=== PATIENT | male | born 1990 | race Caucasian/White ===

== ENCOUNTER 2016-08-30 20:55 | Emergency (ER) | payer BC, OTHER ==
[~2016-08-30] VITALS: Ht 188 cm; Wt 99.8 kg
[2016-08-30 21:03] VITALS: BP 149/87
[2016-08-30] MEDS ORDERED: DOXY100C2 PO (21:17)
[2016-08-30] MEDS ORDERED: traMADol 50 MG TABLET ONE (21:18)
--- NOTE | 2016-08-30 21:18 | PHYS DOC ---
Past Medical History Past Medical History: Kidney Stone, Seizure Additional Past Medical Histor: Autistic, ADHD, manic depressive Past Surgical History: Hip Replacement, Other Additional Past Surgical Histo: RIGHT WRIST SURGERIES; RIGHT KNEE Alcohol Use: Occasionally Drug Use: None Adult General Chief Complaint Chief Complaint: ABSCESS [facility] HPI Patient is a 25 year old male presents emergency department stating that he has an abscess on the right side of his head at the occipital part. He states that he's been having this area for the last 5 days with minimal drainage from the site. He states last night when he tried to roll on that side of his head that he had increased pain and discomfort. He states that he's been taken ibuprofen for the pain and discomfort with no relief. He states that he has had multiple abscesses in the past. He has multiple sores throughout his body that is apparent at this time. He states his last tetanus immunization was 2 years ago. Review of Systems Review of Systems Constitutional: Denies fever or chills [] Eyes: Denies change in visual acuity, redness, or eye pain [] HENT: Denies nasal congestion or sore throat [] Respiratory: Denies cough or shortness of breath [] Cardiovascular: No additional information not addressed in HPI [] GI: Denies abdominal pain, nausea, vomiting, bloody stools or diarrhea [] : Denies dysuria or hematuria [] Musculoskeletal: Denies back pain or joint pain [] Integument: Denies rash or skin lesions [] Neurologic: Denies headache, focal weakness or sensory changes [] Endocrine: Denies polyuria or polydipsia [] Current Medications Current Medications Current Medications Medications (Trade) Dose Ordered Sig/[facility] Start Time Stop Time Status Last Admin Dose Admin Tramadol HCl (Ultram) 50 mg 1X ONCE 08/30/16 21:30 08/30/16 21:31 UNV Allergies Allergies Allergies Coded Allergies Type Severity Reaction Last Updated Verified nickel Allergy Intermediate 08/20/15 Yes Physical Exam Physical Exam Constitutional: Well developed, well nourished, no acute distress, non-toxic appearance. [] HENT: Normocephalic, atraumatic, bilateral external ears normal, oropharynx moist, no oral exudates, nose normal. [] Eyes: PERRLA, EOMI, conjunctiva normal, no discharge. [] Neck: Normal range of motion, no tenderness, supple, no stridor. [] Cardiovascular:Heart rate regular rhythm, no murmur [] Lungs & Thorax: Bilateral breath sounds clear to auscultation [] Skin: Warm, dry, no erythema, no rash. Abscess noted to the occipital part of the right head approx size of a grape. Patient was noted to have a scab over the area. No drainage at this time. Area appears to be slightly tender although no redness noted. A shunt was noted to have multiple sores throughout the body in the upper back area. Back: No tenderness Extremities: No tenderness, no cyanosis, no clubbing, ROM intact, no edema. [] Neurologic: Alert and oriented X 3, normal motor function, normal sensory function, no focal deficits noted. [] Psychologic: Affect normal, judgement normal, mood normal. [] Current Patient Data Vital Signs Vital Signs Date Time Temp Pulse Resp B/P (MAP) Pulse Ox O2 Delivery O2 Flow Rate FiO2 08/30/16 21:03 98.2 115 20 97 Room Air 98.2 EKG EKG [] Radiology/Procedures Radiology/Procedures [] Course & Med Decision Making Course & Med Decision Making Pertinent Labs and Imaging studies reviewed. (See chart for details) Spoke with patient in regards to using ibuprofen 800 mg every 8 hours for pain and discomfort. Also spoke with him in regards to using warm moist packs to the area 4-5 times a day for 20 minutes at a time. Patient states that he wants symptoms stronger than ibuprofen. He states that he doesn't want any narcotics but he needs to have some concern and ibuprofen. Patient reiterated this to me 4 -5 different times that he wanted symptoms stronger but did not want a narcotic. Patient later stated that he needed to tramadol for the pain and discomfort. Spoke with patient regards to proper medication for use each. He states that had multiple abscesses in the past and this is what I need to take care of him. Patient will be discharged home in stable condition with doxycycline with recommendations to use of ibuprofen and warm moist packs. Patient was provided with signs and symptoms to return back to emergency department as been provided. Patient asked provider for Past. Patient was instructed that he would need to discuss this with the nursing staff. [] Dragon Disclaimer Dragon Disclaimer This electronic medical record was generated, in whole or in part, using a voice recognition dictation system. Departure Departure Impression: Primary Impression: Abscess Disposition: HOME, SELF-CARE Condition: STABLE Referrals: NO PCP (PCP) Patient Instructions: Abscess, [id number] Additional Instructions: Being treated for an abscess. Warm moist packs on 20 minutes off 20 minutes several times today for the next 2 -3 days. Ibuprofen 800 mg every 8 hours with food stop taking few develop an upset stomach. Doxycycline as prescribed. Follow-up to primary care physician next 3-5 days. Return back to emergency prior signs symptoms of become worse. Scripts Doxycycline Hyclate (DOXYCYCLINE HYCLATE) 100 Mg Capsule 1 CAP PO BID, #20 CAP Prov: LUIS PALMA APRN 08/30/16 LUIS PALMA APRN August 30, 2016 21:17
[2016-08-30] MEDS ORDERED: traMADol 50 MG TABLET PO ONE (21:30)
== END 2016-08-30 21:27 | disposition home or self-care (01) ==
LOC: ER 21:18
DX: L02.811 Cutaneous abscess of head [any part, except face] (principal); F90.9 Attention-deficit hyperactivity disorder, unspecified type; Z91.048 Other nonmedicinal substance allergy status
CPT/HCPCS: 99283

== ENCOUNTER 2016-09-26 23:32 | Emergency (ER) | payer BC, OTHER ==
[~2016-09-26] VITALS: Ht 177.8 cm; Wt 95.8 kg
[~2016-09-26 23:32] MED LIST: DOXY100C2 PO
--- NOTE | 2016-09-27 01:26 | PHYS DOC ---
Past Medical History Past Medical History: Kidney Stone, Seizure Additional Past Medical Histor: Autistic, ADHD, manic depressive Past Surgical History: Hip Replacement, Other Additional Past Surgical Histo: RIGHT WRIST SURGERIES; RIGHT KNEE Alcohol Use: Occasionally Drug Use: None Adult General Chief Complaint Chief Complaint: PSYCH EVALUATION HPI HPI Patient is a 26 year old male who presents with father for concern of visual hallucinations and anxiety. He has not slept well in the past 2 days. Father states he gets this way when he is not taking his psychiatric medications. Patient states he does not like taking them. Patient and father state that he just needs some medicine to calm down, and then will go home and take his medications. He has plans to follow up with outpatient psychiatry. He denies suicidality, homicidality, auditory hallucinations. He denies substance abuse. He denies headache, vision changes, chest pain, cough, dyspnea, fever or chills , nausea or vomiting, diarrhea. Review of Systems Review of Systems Constitutional: Denies fever or chills [] Eyes: Denies change in visual acuity, redness, or eye pain [] HENT: Denies nasal congestion or sore throat [] Respiratory: Denies cough or shortness of breath [] Cardiovascular: No additional information not addressed in HPI [] GI: Denies abdominal pain, nausea, vomiting, bloody stools or diarrhea [] : Denies dysuria or hematuria [] Musculoskeletal: Denies back pain or joint pain [] Integument: Denies rash or skin lesions [] Neurologic: Denies headache, focal weakness or sensory changes [] Endocrine: Denies polyuria or polydipsia [] Current Medications Current Medications Current Medications Medications (Trade) Dose Ordered Sig/[facility] Start Time Stop Time Status Last Admin Dose Admin Lorazepam (Ativan) 2 mg 1X ONCE 09/27/16 00:45 09/27/16 00:46 DC 09/27/16 00:59 2 MG Ziprasidone (Geodon Im) 10 mg 1X ONCE 09/27/16 01:30 09/27/16 02:12 DC 09/27/16 01:31 10 MG Allergies Allergies Allergies Coded Allergies Type Severity Reaction Last Updated Verified nickel Allergy Intermediate 08/20/15 Yes Physical Exam Physical Exam Constitutional: Well developed, well nourished, no acute distress, non-toxic appearance. [] HENT: Normocephalic, atraumatic, bilateral external ears normal, oropharynx moist, no oral exudates, nose normal. [] Eyes: PERRLA, EOMI. [] Neck: Normal range of motion, supple. [] Cardiovascular:Heart rate regular rhythm [] Lungs & Thorax: Bilateral breath sounds clear to auscultation [] Abdomen: Bowel sounds normal, soft, no tenderness. [] Skin: Warm, dry, no erythema, no rash. [] Back: No tenderness, no CVA tenderness. [] Extremities: No tenderness, ROM intact, no edema. [] Neurologic: Alert and oriented X 3, normal motor function, normal sensory function, no focal deficits noted, cranial nerves II through XII intact. [] Psychologic: Affect anxious, judgement normal, mood normal. [] Course & Med Decision Making Course & Med Decision Making She feels better after Ativan, however is still not to baseline and does not feel like he cannot sleep. He was given Geodon to help with some of his symptoms. He and his father wanted to be discharged after administration of Geodon. Return precautions given. He and his father understand and agree with plan. Dragon Disclaimer Dragon Disclaimer This electronic medical record was generated, in whole or in part, using a voice recognition dictation system. Departure Departure Impression: Primary Impression: Anxiety Additional Impression: Visual hallucinations Disposition: 01 HOME, SELF-CARE Condition: STABLE Referrals: NO PCP (PCP) Patient Instructions: Hallucinations and Delusions Additional Instructions: See your psychiatrist within 3 days. Take your medications. Return for any concerns Problem Qualifiers Jesse CASTILLO MD Sep 27, 2016 01:26
[2016-09-27] MEDS ORDERED: ZIPRASIDONE IM 20 MG VIAL. IM ONE (01:30)
[2016-09-27 23:50] VITALS: BP 126/70
== END 2016-09-27 02:26 | disposition home or self-care (01) ==
LOC: ER 23:32
DX: R44.1 Visual hallucinations (principal); F41.9 Anxiety disorder, unspecified; F90.9 Attention-deficit hyperactivity disorder, unspecified type; F84.0 Autistic disorder; F31.9 Bipolar disorder, unspecified; Z88.8 Allergy status to other drugs, medicaments and biological substances
CPT/HCPCS: 96372; 96374; 99284; J2060; J3486